=== PATIENT | female | born 1975 | race Caucasian/White ===

== ENCOUNTER 2020-07-17 15:14 | Emergency (ER) | payer MEDICAID ==
[~2020-07-17] VITALS: Ht 165.1 cm; Wt 63.5 kg
[2020-07-17 16:03] VITALS: Ht 165.1 cm; Wt 63.5 kg
[2020-07-17 20:33] LABS: BASOPHIL % 0.8 % (0.2-1.3); PLATELET COUNT 318 x10^3mcL (179-408)
[2020-07-17 20:41] LABS: CARBON DIOXIDE 26.7 mmol/L (21-32); CHLORIDE SERUM 104 mmol/L (98-107); CREATININE SERUM 0.9 mg/dL (0.6-1.0); GFR1 > 60 mL/min; GLUCOSE SERUM 137 mg/dL (74-106); POTASSIUM SERUM 3.4 mmol/L (3.5-5.1); SODIUM SERUM 137 mmol/L (136-145)
[2020-07-17 20:45] LABS: ALBUMIN 4.2 g/dL (3.4-5.0); ALKALINE PHOSPHATASE 64 U/L (46-116); ALT/SGPT 21 U/L (14-59); AST/SGOT 9 U/L (15-37); BILIRUBIN TOTAL 0.54 mg/dL (0.20-1.00); TOTAL PROTEIN, SERUM 7.5 g/dL (6.4-8.2)
[2020-07-17 21:40] VITALS: BP 149/80
== END 2020-07-17 21:40 | disposition home or self-care (01) ==
LOC: ED 15:14
PROVIDERS: Student in an Organized Health Care Education/Training Program
DX: R07.89 Other chest pain (principal); M79.10 Myalgia, unspecified site; R51.9 Headache, unspecified; Z13.9 Encounter for screening, unspecified